=== PATIENT | male | born 1935 | race Caucasian/White ===

== ENCOUNTER 2016-05-20 18:01 | Emergency (ER) | payer MEDICARE, OTHER ==
[2016-05-20 17:43] LABS: BASOPHILS 0.2 %; BASOPHILS ABSOLUTE 0.02 10/3/uL (0.0-0.16); EOSINOPHILS 0.2 %; EOSINOPHILS ABSOLUTE 0.02 10/3/uL (0.0-0.53); HEMATOCRIT 44.4 % (40.0-51.0); HEMOGLOBIN 15.3 g/dL (13.6-17.8); IMMATURE GRANULOCYTES 0.2 %; IMMATURE GRANULOCYTES ABSOLUTE 0.03 10/3/uL (0.0-0.11); LYMPHOCYTES 3.8 %; LYMPHOCYTES ABSOLUTE 0.47 10/3/uL (0.67-4.30); MEAN CORPUS HGB CONC 34.5 g/dL (32.0-36.0); MEAN CORPUSCULAR HEMOGLOB 29.8 pg (26.0-34.0); MEAN PLATELET VOLUME 9.3 fL (9.2-13.0); MONOCYTES 6.8 %; MONOCYTES ABSOLUTE 0.84 10/3/uL (0.21-1.20); NEUTROPHILS 88.8 %; NEUTROPHILS ABSOLUTE 10.98 10/3/uL (2.02-8.40); PLATELET COUNT 145 10/3/uL (150-400); RBC DISTRIBUTION WIDTH 14.8 % (12.0-16.0); RED CELL COUNT 5.13 10/6/uL (4.7-6.1)
[2016-05-20 17:44] LABS: MANUAL DIFF NO %; MEAN CORPUSCULAR VOLUME 86.5 fL (80-100); WHITE BLOOD CELLS 12.4 10/3/uL (4.5-10.5)
[2016-05-20 17:56] LABS: ASCORBIC ACID (UR NOT ORDER) NEG (NEG); BILIRUBIN, URINE NEGATIVE (NEG); ER URINALYSIS TAT 0 Hrs 16 Mins; KETONE, URINE NEGATIVE (NEG); LEUKOCYTE ESTERASE(NOT OR LARGE (NEG); NITRITE (URINE) NEG (NEG)
[2016-05-20 17:57] LABS: WBC (NOT ORDERED) (RFLEX) > 182 (0-5)
[2016-05-20 17:59] LABS: A/G RATIO 0.9 (0.7-1.9); ALBUMIN 3.5 G/DL (3.5-5.0); ALKALINE PHOSPHATASE 88 U/L (45-117); BUN (BLOOD UREA NITROGEN) 46 MG/DL (6-23); CALCIUM, SERUM 8.6 MG/DL (8.5-10.4); CHLORIDE, SERUM 107 MMOL/L (96-112); CO2 (CARBON DIOXIDE) 24 MMOL/L (24-34); CREATININE 2.99 MG/DL (0.70-1.30); GFR AFRICAN AMERICAN 22 ML/MIN (>=60); GFR NON AFRICAN AMERICAN 19 ML/MIN (>=60); GLUCOSE, SERUM 128 MG/DL (60-99); POTASSIUM, SERUM 4.3 MMOL/L (3.5-5.3); SGOT(AST) 19 U/L (5-40); SGPT(ALT) 23 U/L (5-65); SODIUM, SERUM 140 MMOL/L (135-148); TOTAL BILIRUBIN 0.3 MG/DL (0-1.2); TOTAL PROTEIN 7.5 G/DL (6.0-8.5)
[~2016-05-20 18:01] MED LIST: COZ50 PO; FLOMAX4 PO; HALF81 PO; LANTUS SC; LEVOTHYROXIN75 MCG PO; PROSCAR5 PO; SEPTRA1 TAB PO; T PO; VITAMIN D2000 UNIT PO
[2016-10-17] MEDS ORDERED: DSS PO (22:32)
[2016-10-17] MEDS ORDERED: HALF81 PO (22:33)
[2016-10-17] MEDS ORDERED: FLOMAX4 PO (22:34)
[2016-10-17] MEDS ORDERED: VITAMIN D2000 UNIT PO (22:34)
[2016-10-17] MEDS ORDERED: LEVOTHYROXIN100 MCG PO (22:34)
[2016-10-17] MEDS ORDERED: LANTUS SC (22:34)
[2016-10-17] MEDS ORDERED: NORV5 PO (22:35)
[2016-10-17] MEDS ORDERED: PROSCAR5 PO (22:35)
[2016-10-17] MEDS ORDERED: EXELON3 PO (22:35)
[2016-10-17] MEDS ORDERED: REM15 PO (22:35)
[2016-10-17] MEDS ORDERED: COZ50 PO (22:35)
[2016-10-21] MEDS ORDERED: OMNICEF300 PO (15:05)
[2016-10-21] MEDS ORDERED: LOVENOX SC (15:05)
[2016-10-21] MEDS ORDERED: COUMADIN4 MG PO (15:07)
[2016-10-21] MEDS ORDERED: COREG12 PO (15:08)
== END 2016-05-20 19:51 | disposition home or self-care (01) ==
LOC: ER 18:01
PROVIDERS: Emergency Medicine
DX: N39.0 Urinary tract infection, site not specified (principal); E11.649 Type 2 diabetes mellitus with hypoglycemia without coma; I10 Essential (primary) hypertension; I12.9 Hypertensive chronic kidney disease with stage 1 through stage 4 chronic kidney disease, or unspecified chronic kidney disease; N18.9 Chronic kidney disease, unspecified; E11.9 Type 2 diabetes mellitus without complications; Z79.82 Long term (current) use of aspirin; Z79.4 Long term (current) use of insulin
CPT/HCPCS: 80053; 81001; 82962; 85025; 87077; 87086; 87186; 93005; 96365; 99284